=== PATIENT | female | born 1995 | race Caucasian/White ===

== ENCOUNTER 2018-12-08 10:58 | Emergency (ER) | payer OTHER ==
[2018-12-08] MEDS: HYDROCODONE/APAP (5/325) TAB PO (11:24)
== END 2018-12-08 12:16 | disposition home or self-care (01) ==
LOC: FTE 12:16
DX: S62.633A Displaced fracture of distal phalanx of left middle finger, initial encounter for closed fracture (principal); S60.132A Contusion of left middle finger with damage to nail, initial encounter; S62.635A Displaced fracture of distal phalanx of left ring finger, initial encounter for closed fracture; W23.1XXA Caught, crushed, jammed, or pinched between stationary objects, initial encounter; Y92.9 Unspecified place or not applicable
CPT/HCPCS: 11740; 73130-LT; 99283-25

== ENCOUNTER 2018-12-08 15:13 | Emergency (ER) | payer OTHER | END 2018-12-08 15:39 | disposition home or self-care (01) | LOC: FTE 15:13 → E/R 15:39 | DX: S62.633A Displaced fracture of distal phalanx of left middle finger, initial encounter for closed fracture (principal); S62.635A Displaced fracture of distal phalanx of left ring finger, initial encounter for closed fracture; X58.XXXA Exposure to other specified factors, initial encounter; Y92.9 Unspecified place or not applicable | CPT/HCPCS: 99282; Z7502 ==